=== PATIENT | male | born 2000 | race African-American/Black ===

== ENCOUNTER 2022-03-08 20:10 | Inpatient (IN) ==
[2022-03-08] MEDS ORDERED: ONDANSETRON INJ 2 MG/ML 2 ML VIAL IV STA (20:16)
[2022-03-08 20:54] LABS: Basophils # (auto) 0.01 K/uL (0-0.2); Basophils % (auto) 0.1 %; Eosinophils # (auto) 0.04 K/uL (0-0.50); Eosinophils % (auto) 0.6 %; Hematocrit (blood only) 40.8 % (40.1-51.0); Hemoglobin 13.9 g/dl (14.0-18.0); Immature Granulocytes # (auto) 0.02 K/uL (0.00-0.02); Immature Granulocytes % (auto) 0.3 %; Lymphocytes # (auto) 1.26 K/uL (1.2-3.4); Lymphocytes % (auto) 17.6 %; Mean Corpuscular Hemoglobin 29.4 pg (25.0-34.0); Mean Corpuscular Hgb Conc 34.1 g/dL (32.0-36.0); Mean Corpuscular Volume 86.3 fL (80.0-100.0); Monocytes # (auto) 0.51 K/uL (0.24-0.82); Monocytes % (auto) 7.1 %; Neutrophils % (auto) 74.3 %; Platelet Count 321 K/uL (130-400); RDW Coefficient of Variation 11.4 % (11.5-14.5); RDW Standard Deviation 36.1 fL (36.4-46.3); Red Blood Count 4.73 M/uL (4.63-6.08); White Blood Count 7.14 K/ul (4.8-10.8)
[2022-03-08] MEDS ORDERED: ACETAMINOPHEN 1,000 MG/100 ML VIAL IV STA (21:01)
[2022-03-08] MEDS ORDERED: PROMETHAZINE HCL 12.5 MG in SODIUM CHLORIDE 0.9% 50 ML IV STA (21:01)
[2022-03-08 21:13] LABS: Albumin Globulin Ratio 1.3 (0.9-2); Albumin Level 4.5 gm/dl (3.4-5.0); BUN Creatinine Ratio 7.4 (10-20); Bilirubin,Total 1.1 mg/dl (0.2-1.0); Calcium 9.6 mg/dl (8.5-10.1); Est GFR (African American) 97.9 ml/min; Est GFR (Non-African American) 84.5 ml/min; Globulin 3.6 gm/dl (2.5-4.0); Potassium 4.1 mmol/L (3.5-5.1); Total Protein 8.1 gm/dl (6.0-8.3)
[2022-03-08] MEDS ORDERED: MoRPHine SULFATE 4 MG/ML 1 ML CARP\\VIAL IV STA (22:50)
[2022-03-08] MEDS ORDERED: PROMETHAZINE 12.5 MG/50.5 ML BAG IV STA (22:51)
[2022-03-09] MEDS ORDERED: OPTIRAY 350 100ml IV ONE (00:42)
--- NOTE | 2022-03-09 01:18 | Emergency Department Note ---
Impression & Plan Vomiting and diarrhea, Abdominal pain, lower ED Provider Note CHIEF COMPLAINT: Lower abdominal pain, vomiting, diarrhea HISTORY OF PRESENT ILLNESS: This 21 yo male patient presents to the emergency department with c/o mid lower abd pain radiating towards the right. Patient states he has been vomiting and had several episodes of diarrhea throughout the day today. In October of this year the patient presented to the emergency department with right lower quadrant abdominal pain concerning for appendicitis. CT imaging was somewhat equivocal, the patient was treated with antibiotics and bowel rest, and did not have definitive surgery. He was referred to the emergency department today by the team physician after complaining of abdominal pain. The patient denies any blood in the emesis or in the bowels. He denies any fever, pain of the genitals or discharge. Patient is not having difficulty urinating. REVIEW OF SYSTEMS: A review of systems was performed with positives and pertin ent negatives listed in the history of present illness. 10 systems were reviewed and are otherwise negative. ALLERGIES: see below MEDICATIONS: see below PMH: see below SOCIAL HISTORY: see below DDx: Appendicitis, testicular torsion, infections, diverticulitis, UTI, obstruction, mesenteric ischemia, aortic pathology, inflammatory bowel disease, renal colic, PUD, pancreatitis, biliary pathology, hernia, volvulus, constipation, as well as other pathologies. PHYSICAL EXAM: Vital signs reviewed. General: Well-appearing 21 yo male, in some discomfort. HEENT: No scleral icterus, PERRLA, neck supple. MMM Cardiovascular: Regular rate and rhythm, no extra sounds. Pulmonary: Clear to auscultation bilaterally, normal work of breathing. Abdomen: Soft, mid lower abd tenderness radiating to LLQ, nondistended, positive bowel sounds. Musculoskeletal: Atraumatic, no peripheral edema. Neurologic: Patient awake alert and oriented x 3 Skin: Warm, dry, no rash EMERGENCY DEPARTMENT COURSE/MDM: Patient evaluated appear to be in no significant distress. IV access was obtained and laboratory work was drawn. Patient vomited several times in the emergency department. He was not able to provide a stool sample. He was given Zofran, Phenergan and Dilaudid and but still we were unable to administer oral contrast due to his lack of body fat for CT imaging. Patient did have some CT contrast in the stomach but just prior to CT vomited. Stat rad stated there is a tubular structure in the right lower quadrant that may represent ileum or the appendix, it was unclear. Patient's presentation was a bit more consistent with gastroenteritis although through the stay in the emergency department he did develop a more localized tenderness. Patient had a normal WBC. General surgery was contacted as the patient remains tender to palpation. Patient was hospitalized under Dr. Keith for ob servation and further management. MONITORING: An order for cardiac monitoring was placed and the patient is noted to be in a NSR at 77 beats per minute. RADIOLOGY: See below DISPOSITION: Admit Past Med/Surg History Medical History (Updated 03/09/22 @ 15:05 by Ingrid Rae MD) Acute appendicitis with localized peritonitis No chronic diseases present Surgical History (Updated 03/09/22 @ 15:07 by Sally Segovia RN) History of laparoscopic appendectomy (03/09/22) Laparoscopic Appendectomy(Not Applicable) - Javad Keith, , FACS No significant past surgical history Social History Smoking Status: Current some day smoker Tobacco Type: E-cigarettes / Vaping Second Hand Exposure: No; Hx Alcohol Use: Yes Alcohol type: beer and hard liquor Hx Substance Use: No Preferred Language: Malay Communication Ability: Effective Cadd Drafter Required: No Beliefs That Will Affect Care: None Current Living Situation: Alone Current Living Situation Comment: Apartment Feels Safe at Home: No Is there a partner from a previous relationship who is making you feel unsafe now?: No Assistive Devices: None Allergies Allergies Allergy/AdvReac Type Severity Reaction Status Date / Time No Known Allergies Allergy Verified 03/08/22 23:15 Home Meds Previous Rx's Medication Instructions Recorded oxycodone-acetaminophen 5 mg-325 1 - 2 tab PO Q4H PRN pain, initial 03/09/22 mg tablet (Percocet) therapy, max 6 daily #15 tabs Results & Data (ED) Vital Signs Vital Signs - 24 hr 03/08/22 20:28 03/08/22 21:05 03/08/22 20:14 Temperature 36.7 C Temperature Source Oral Pulse Rate 76 Pulse Rate [Apical] 77 Respiratory Rate 18 18 Respiratory Effort / Characteristics Non-Labored Spontaneous Respiratory Depth Normal Respiratory Pattern Regular Blood Pressure 149/123 H Blood Pressure [Right Arm] 135/62 Blood Pressure Mean 131 Blood Pressure Mean [Right Arm] 86 Pulse Oximetry 96 98 99 Oxygen Delivery Method Room Air Room Air Room Air Sepsis Recent Fever Within 48 Hours No Sepsis New/Unexplained Change in Mental Status N/A Sepsis Action Taken by Nursing No Action Required 03/08/22 23:00 Temperature Temperature Source Pulse Rate Pulse Rate [Apical] 64 Respiratory Rate 16 Respiratory Effort / Characteristics Non-Labored Respiratory Depth Normal Respiratory Pattern Blood Pressure Blood Pressure [Right Arm] 133/72 Blood Pressure Mean Blood Pressure Mean [Right Arm] 92 Pulse Oximetry Oxygen Delivery Method Sepsis Recent Fever Within 48 Hours Sepsis New/Unexplained Change in Mental Status Sepsis Action Taken by Assisted Medications Current Medication List: was personally reviewed by me Laboratory Data Attestation: I reviewed the patient's lab results. Result diagrams: 03/09/22 06:25 03/09/22 06:25 Lab Results 03/08/22 03/08/22 03/08/22 Range/Units 20:37 20:37 21:19 WBC 7.14 (4.8-10.8) K/ul RBC 4.73 (4.63-6.08) M/uL Hgb 13.9 L (14.0-18.0) g/dl Hct 40.8 (40.1-51.0) % MCV 86.3 (80.0-100.0) fL MCH 29.4 (25.0-34.0) pg MCHC 34.1 (32.0-36.0) g/dL RDW Std Deviation 36.1 L (36.4-46.3) fL RDW Coeff of Chicho 11.4 L (11.5-14.5) % Plt Count 321 (130-400) K/uL MPV 10.0 (9.4-12.4) fL Immature Gran % (Auto) 0.3 % Neut % (Auto) 74.3 % Lymph % (Auto) 17.6 % Nye % (Auto) 7.1 % Eos % (Auto) 0.6 % Baso % (Auto) 0.1 % Neut # (Auto) 5.30 (1.4-6.5) K/uL Lymph # (Auto) 1.26 (1.2-3.4) K/uL Nye # (Auto) 0.51 (0.24-0.82) K/uL Eos # (Auto) 0.04 (0-0.50) K/uL Baso # (Auto) 0.01 (0-0.2) K/uL Immature Gran # (Auto) 0.02 (0.00-0.02) K/uL Sodium 135 L (136-145) mmol/L Potassium 4.1 (3.5-5.1) mmol/L Chloride 100 (98-107) mmol/L Carbon Dioxide 29 (21-32) mmol/L Anion Gap 6 (3-11) BUN 9 (6-23) mg/dl Creatinine 1.21 (0.6-1.4) mg/dl Est Cr Clr Drug Dosing 112.0 ml/min Est GFR ( Amer) 97.9 ml/min Est GFR (Non-Af Amer) 84.5 ml/min BUN/Creatinine Ratio 7.4 L (10-20) Glucose 102 H (70-99(Fasting)) mg/dl Calcium 9.6 (8.5-10.1) mg/dl Total Bilirubin 1.1 H (0.2-1.0) mg/dl AST 26 (13-39) U/L ALT 13 (7-52) U/L Alkaline Phosphatase 81 (34-104) U/L Total Protein 8.1 (6.0-8.3) gm/dl Albumin 4.5 (3.4-5.0) gm/dl Globulin 3.6 (2.5-4.0) gm/dl Albumin/Globulin Ratio 1.3 (0.9-2) Lipase 10 L (11-82) U/L SARS-CoV-2, RNA, NAAT NEGATIVE (NEGATIVE) Administered Medications Lactated Ringer's (Lr) 1,000 mls @ 125 mls/hr IV .Q8H RADHA Stop: 04/08/22 01:44 Last Infusion: 03/09/22 10:07 Dose: 0 mls/hr Documented By: Admin: 03/09/22 02:05 Dose: 125 mls/hr Documented By: LARA Piperacillin Sod/Tazobactam (Sod 3.375 gm/ Dextrose) 115 mls @ 200 mls/hr IV Q8H RADHA; Protocol Stop: 03/10/22 15:59 Last Infusion: 03/09/22 16:34 Dose: 0 mls/hr Documented By: Admin: 03/09/22 15:56 Dose: 200 mls/hr Documented By: YE Morphine Sulfate (Morphine Sulfate 4 Mg/Ml 1 Ml Carp\Vial) 4 mg IV Q2H PRN PRN Reason: Pain Stop: 03/23/22 14:11 Last Admin: 03/09/22 14:23 Dose: 4 mg Documented By: YE Ondansetron HCl (Ondansetron Inj 2 Mg/Ml 2 Ml Vial) 4 mg IV Q6H PRN PRN Reason: Nausea And Vomiting Stop: 04/08/22 01:43 Last Admin: 03/09/22 02:05 Dose: 4 mg Documented By: LARA Discontinued Medications Bupivacaine HCl (Bupivacaine 0.5 % 5 Mg/1 Ml Mpf 30ml Vial) Confirm Administered Dose 30 ml .ROUTE .STK-MED ONE Stop: 03/09/22 10:51 Last Admin: 03/09/22 11:49 Dose: 24 ml Documented By: YANELIS Fentanyl Citrate (Fentanyl Citrate 100 Mcg/2 Ml Vial) 50 mcg IV Q5M PRN PRN Reason: PACU Use Only-Pain Stop: 03/09/22 19:35 Last Admin: 03/09/22 12:47 Dose: 50 mcg Documented By: Acetaminophen (Ofirmev) 1,000 mg in 100 mls @ 400 mls/hr IV NOW STA Stop: 03/08/22 21:15 Last Infusion: 03/08/22 21:30 Dose: 0 mls/hr Documented By: Admin: 03/08/22 21:16 Dose: 400 mls/hr Documented By: KEKE Promethazine HCl 12.5 mg/ (Sodium Chloride) 50.5 mls @ 202 mls/hr IV NOW STA Stop: 03/08/22 21:15 Last Infusion: 03/08/22 22:03 Dose: 0 mls/hr Documented By: Admin: 03/08/22 21:30 Dose: 202 mls/hr Documented By: KEKE Promethazine HCl (Phenergan) 12.5 mg in 50.5 mls @ 202 mls/hr IV NOW STA Stop: 03/08/22 23:05 Last Infusion: 03/08/22 23:40 Dose: 0 mls/hr Documented By: Admin: 03/08/22 22:58 Dose: 202 mls/hr Documented By: SLOAN Piperacillin Sod/Tazobactam Sod (Zosyn) 4.5 gm in 120 mls @ 240 mls/hr IV NOW ONE Stop: 03/09/22 02:17 Last Infusion: 03/09/22 03:24 Dose: 0 mls/hr Documented By: Admin: 03/09/22 02:05 Dose: 240 mls/hr Documented By: LARA Piperacillin Sod/Tazobactam (Sod 4.5 gm/ Dextrose) 120 mls @ 30 mls/hr IV Q8H RADHA; Protocol Stop: 03/19/22 03:03 Last Infusion: 03/09/22 12:08 Dose: 0 mls/hr Documented By: Admin: 03/09/22 08:08 Dose: 30 mls/hr Documented By: YE Ioversol (Optiray 350 100ml) 100 ml IV ONCE ONE Stop: 03/09/22 00:43 Last Admin: 03/09/22 07:09 Dose: Not Given Documented By: YE Morphine Sulfate (Morphine Sulfate 4 Mg/Ml 1 Ml Carp\Vial) 4 mg IV NOW STA Stop: 03/08/22 22:51 Last Admin: 03/08/22 22:58 Dose: 4 mg Documented By: SLOAN Morphine Sulfate (Morphine Sulfate 2 Mg/Ml Carp) 2 mg IV Q4H PRN PRN Reason: Pain Stop: 03/23/22 01:43 Last Admin: 03/09/22 02:05 Dose: 2 mg Documented By: LARA Ondansetron HCl (Ondansetron Inj 2 Mg/Ml 2 Ml Vial) 4 mg IV NOW STA Stop: 03/08/22 20:17 Last Admin: 03/08/22 20:36 Dose: 4 mg Documented By: LARA Imaging Data Radiologist's Impression: Abdomen/Pelvis CT 03/08/22 20:14 CT OF THE ABDOMEN AND PELVIS WITH CONTRAST CLINICAL HISTORY: Right lower quadrant abdominal pain, h/o equivocal appy in past COMPARISON STUDY: CT of the abdomen pelvis November 12, 2021. TECHNIQUE: Following IV administration of 88 mL of Optiray, axial images of the abdomen and pelvis were obtained from the lung bases to the proximal femurs. Images were reviewed in the axial, sagittal, and coronal planes. IV contrast was administered without complication. Automated exposure control was utilized for the study. A dose lowering technique was utilized adhering to the principles of ALARA. Patient vomited following ingestion of oral contrast. CT DOSE: 335.52 mGy.cm FINDINGS: Lung bases are unremarkable. No pneumatosis, free air or portal venous gas is present. Liver, spleen, adrenal glands, kidneys and pancreas are unremarkable. There is no biliary or pancreatic ductal dilatation. There is no hydronephrosis. There is no evidence for a bowel obstruction. This exam is technically difficult to interpret given paucity of intra-abdominal fat and minimal oral contrast. However, there is a tubular structure which appears to be blind ending within the right lower quadrant which may reflect the appendix. T his measures 1.1 cm in caliber. There is no adjacent inflammation. A dilated appendix is favored. Less likely, this could reflect a small bowel loop. No normal-appearing appendix is identified. There is no free air. No abscess is present. Major vasculature is patent. Visualized skeletal structures are unremarkable. IMPRESSION: Tubular structure which appears to be blind ending within the right lower quadrant, measuring 11 mm in caliber. No normal-appearing appendix romie ntified. This is suggestive of acute appendicitis. Less likely, this could reflect a bowel loop. Surgical consultation is recommended. ACT 112: Negative or not required by law. Electronically signed by: Reynold Morel M.D. 03/09/2022 8:12 AM Blood Pressure Blood Pressure Findings: Normal blood pressure Blood Pressure Disposition: Referred to patients primary care provider Discharge Plan Visit Data Chief Complaint: Abdominal Pain Stated Complaint: APPENDIX PAIN,VOMIT, CHILLS ED Provider: Ingrid Rae Discharge Problem: Vomiting and diarrhea, Abdominal pain, lower Patient Disposition: Admitted As Inpatient Discharge Instructions Interventions: ED Discharge Assessment Last Done: 03/09/22 02:20
--- NOTE | 2022-03-09 01:43 | History & Physical Report ---
Date of Service March 09, 2022 Assessment & Plan (1) Abdominal pain: Plan: It is unclear if the patient is suffering merely from a gastroenteritis or acute appendicitis. I discussed the case with my attending physician Dr. Keith. After reviewing the CT scan he is favoring acute appendicitis at this time. We will therefore proceed as follows: Provide analgesics Provide antiemetics We will initiate antibiotics in the form of Zosyn We will provide IV fluid for hydration We will keep the patient n.p.o. We will tentatively schedule the patient for an appendectomy with Dr. Keith. Dr. Keith says he will review the CT scan with our in-house radiologist and also reexamined the patient in the morning at which time he will make a definitive decision whether or not patient will require an appendectomy I have discussed the case with patient's mother Soledad via phone at the patient's request. Her number is [phone] We will use SCDs for DVT prevention, no chemical means due to potential need for surgery Additional recommendations be forthcoming based on his clinical course as it unfolds The patient be a level 1 full code History of Present Illness Chief Complaint: Abdominal pain Primary Care Provider: [facility] This is a 21-year-old male who presented to [facility] secondary to 24 hours of abdominal pain. Patient notes that the pain in his lower abdomen near his umbilicus and also the right lower quadrant. He has had associated nausea and vomiting. He denies any fevers, shakes, or chills. He notes that the pain is worse with certain movements. He does not note any other modifying factors. He has never had any abdominal surgeries in the past. In the emergency department the patient had labs and imaging which independent reviewed. CT scan of the abdomen pelvis was performed with intravenous and oral contrast. Unfortunately the patient vomited shortly after consuming some of the oral contrast. On this scan the appendix was not well visualized but there was an 11 mm structure in the right lower quadrant that was felt either reflect a dilated appendix or loop of ileum. The patient did have labs were CBC revealed white blood cell count was normal. His hemoglobin was 13.9 with a normal hematocrit. Platelet count was noted to be normal. Chemistry profile showed sodium was 135. Potassium, BUN, and creatinine were normal. Patient did have a COVID test that was negative. It is noteworthy to mention that the patient did present to [facility] in [place] of this year with similar symptoms. During that visit CT scan of the abdomen showed that the tip of the appendix was mildly distended and filled with hyperdense material measuring up to 8 mm. There is no definite wall thickening or surrounding inflammation and clinical suspicion was low for tip appendicitis. The patient was discharged home and has been doing well since. The treating emergency room physician did speak with the interpreting radiologist and when he compared the 2 scans there was concern the patient did have an acute appendicitis. Allergies Allergy/AdvReac Type Severity Reaction Status Date / Time No Known Allergies Allergy Verified 03/08/22 23:15 Home Medications Medication Instructions Recorded Confirmed Type No Known Home Medications 03/08/22 03/08/22 History Past Med/Surg History Medical History No chronic diseases present Surgical History No significant past surgical history Social History Smoking Status: Current some day smoker Tobacco Type: E-cigarettes / Vaping Preferred Language: Macanese Feels Safe at Home: Yes Review of Systems Constitutional: no fever and no chills Eyes: no eye pain Ear, Nose, Mouth, Throat: no ear pain Respiratory: no cough and no dyspnea Cardiovascular: no chest pain Gastrointestinal: + abdominal pain, + nausea and + vomiting Genitourinary: no dysuria Musculoskeletal: no back pain Integumentary: no rash Neurologic: no localized weakness Physical Exam Constitutional: well developed and well nourished; no acute distress Eyes: no conjunctival abnormality ENMT: Ears: no hearing impairment and no external ear abnormality Mouth: no oropharynx abnormality Neck: trachea midline Respiratory: normal respiratory effort; no respiratory distress and no labored breathing Cardiovascular: Rate/Rhythm: regular rate and regular rhythm Gastrointestinal (Abdomen): Abdomen is soft and nondistended. It is nonrigid. The patient did have pain with palpation in the lower abdomen in a generalized fashion but did have pain over McBurney's point with palpation. He did have some slight rebound. Musculoskeletal: No calf tenderness Skin: no rashes Neurologic: moves all extremities Psychiatric: A+Ox3, euthymic affect Results & Data Results & Data (MN) Vital Signs (Past 12 Hours) Vital Signs Temp Pulse Pulse Resp BP BP Pulse Ox 03/08/22 20:14 99 03/08/22 21:05 77 18 135/62 98 03/08/22 20:28 36.7 C 76 18 149/123 H 96 O2 Del Method 03/08/22 20:14 Room Air 03/08/22 21:05 Room Air 03/08/22 20:28 Room Air PG Care Time/CCT Total # of Minutes Spent Total Time Spent with Patient: Total time spent is greater than 50% in coordination of care (as documented) at patient's floor/unit and/or counseling patient: Coding Level of Care Code 23481 Initial Inpt Care Lvl 3 Diagnoses Abdominal pain R10.9
[2022-03-09] MEDS ORDERED: ONDANSETRON INJ 2 MG/ML 2 ML VIAL IV PRN ×2 (01:44→11:35)
[2022-03-09] MEDS ORDERED: MoRPHine SULFATE 2 MG/ML CARP IV PRN ×2 (01:44→14:12)
[2022-03-09] MEDS ORDERED: PIPERACILLIN/TAZOBACTAM 4.5 GM/120 ML BAG IV ONE (01:48)
[2022-03-09] MEDS: LACTATED RINGER'S 1,000 ML IV SCH ×2 (02:05→14:00)
[2022-03-09 05:25] LABS: Appearance Urine Clear (Clear); Bacteria Urine Automated Negative (Negative); Bilirubin Urine Negative (Negative); Blood Urine Negative (Negative); Color Urine Yellow; Glucose Urine UA Negative (Negative); Ketones Urine 1+ (Negative); Leukocyte Esterase Urine Negative (Negative); Nitrite Urine Negative (Negative); RBC Urine Automated 0-4 /hpf (0-4); Specific Gravity Urine > 1.045 (1.000-1.030); Urobilinogen Urine Negative (Negative); pH Urine 7.5 (4.5-7.5)
[2022-03-09 05:31] LABS: Protein Urine Trace (Negative)
[2022-03-09 06:44] LABS: Basophils # (auto) 0.02 K/uL (0-0.2); Basophils % (auto) 0.2 %; Hematocrit (blood only) 40.6 % (40.1-51.0); Hemoglobin 13.9 g/dl (14.0-18.0); Immature Granulocytes # (auto) 0.03 K/uL (0.00-0.02); Immature Granulocytes % (auto) 0.2 %; Lymphocytes # (auto) 0.94 K/uL (1.2-3.4); Lymphocytes % (auto) 7.7 %; Mean Corpuscular Hemoglobin 29.2 pg (25.0-34.0); Mean Corpuscular Hgb Conc 34.2 g/dL (32.0-36.0); Mean Corpuscular Volume 85.3 fL (80.0-100.0); Mean Platelet Volume 9.9 fL (9.4-12.4); Monocytes # (auto) 0.95 K/uL (0.24-0.82); Monocytes % (auto) 7.8 %; Neutrophils # (auto) 10.31 K/uL (1.4-6.5); Neutrophils % (auto) 84.1 %; Platelet Count 287 K/uL (130-400); RDW Coefficient of Variation 11.2 % (11.5-14.5); RDW Standard Deviation 34.8 fL (36.4-46.3); Red Blood Count 4.76 M/uL (4.63-6.08); White Blood Count 12.25 K/ul (4.8-10.8)
[2022-03-09 07:09] LABS: BUN Creatinine Ratio 9.5 (10-20); Calcium 9.1 mg/dl (8.5-10.1); Creatinine Clr Calc Pharmacy 131.9 ml/min; Est GFR (African American) 116.2 ml/min; Est GFR (Non-African American) 100.3 ml/min; Potassium 4.1 mmol/L (3.5-5.1)
[2022-03-09] MEDS ORDERED: PIPERACILLIN/TAZOBACTAM 4.5 GM in DEXTROSE 5% 100 ML IV SCH (08:00)
--- NOTE | 2022-03-09 08:14 | CT Scan Report ---
CT OF THE ABDOMEN AND PELVIS WITH CONTRAST CLINICAL HISTORY: Right lower quadrant abdominal pain, h/o equivocal appy in past COMPARISON STUDY: CT of the abdomen pelvis November 12, 2021. TECHNIQUE: Following IV administration of 88 mL of Optiray, axial images of the abdomen and pelvis we re obtained from the lung bases to the proximal femurs. Images were reviewed in the axial, sagittal, and coronal planes. IV contrast was administered without complication. Automated exposure control wa s utilized for the study. A dose lowering technique was utilized adhering to the principles of ALARA . Patient vomited following ingestion of oral contrast. CT DOSE: 335.52 mGy.cm FINDINGS: Lung bases are unremarkable. No pneumatosis, free air or portal venous gas is present. Live r, spleen, adrenal glands, kidneys and pancreas are unremarkable. There is no biliary or pancreatic d uctal dilatation. There is no hydronephrosis. There is no evidence for a bowel obstruction. This exam is technically difficult to interpret given paucity of intra-abdominal fat and minimal oral contrast . However, there is a tubular structure which appears to be blind ending within the right lower quadr ant which may reflect the appendix. This measures 1.1 cm in caliber. There is no adjacent inflammatio n. A dilated appendix is favored. Less likely, this could reflect a small bowel loop. No normal-appea ring appendix is identified. There is no free air. No abscess is present. Major vasculature is patent . Visualized skeletal structures are unremarkable. IMPRESSION: Tubular structure which appears to be blind ending within the right lower quadrant, cristina uring 11 mm in caliber. No normal-appearing appendix identified. This is suggestive of acute appendic itis. Less likely, this could reflect a bowel loop. Surgical consultation is recommended. ACT 112: Negative or not required by law. Electronically signed by: Reynold Morel M.D. 03/09/2022 8:12 AM
[2022-03-09] MEDS ORDERED: ONDANSETRON INJ 2 MG/ML 2 ML VIAL ONE ×2 (10:07→11:43)
[2022-03-09] MEDS ORDERED: GLYCOPYRROLATE 0.2 MG/ML VIAL ONE ×2 (10:07→11:45)
[2022-03-09] MEDS ORDERED: PROPOFOL IV EMULSION 10 MG/ML 20 ML VIAL IV ONE (10:07)
[2022-03-09] MEDS ORDERED: NEOSTIGMINE METHYLSULFATE 1 MG/ML 10ML VIAL ONE (10:07)
[2022-03-09] MEDS ORDERED: MIDAZOLAM HCL 1 MG/ML 2ML VIAL ONE (10:07)
[2022-03-09] MEDS ORDERED: DEXAMETHASONE SOD INJ 4 MG/ML VIAL ONE (10:07)
[2022-03-09] MEDS ORDERED: fentaNYL citrate 100 MCG/2 ML VIAL ONE (10:07)
--- NOTE | 2022-03-09 10:29 | Surgery Progress Note ---
Date of Service March 09, 2022 Assessment & Plan (1) Acute appendicitis with localized peritonitis: Plan: 21year old male with appendicitis. plan for laparoscopic appendectomy risks discussed to include but not limited to bleeding, infection, normal appendix, abscess, open surgery, damage to surrounding structures including bile duct, need for future or more extensive surgery, failure to treat symptoms, and risks of anesthesia. Wound care instructions and activity restrictions reviewed. Specifically no heavy lifting or strenuous activity for 2 to 3 weeks. He may need to wait longer to return to full contact. Admission and Anticipated Discharge Date Admission Date: March 09, 2022 Subjective 21-year-old male presented overnight with signs symptoms of acute appendicitis. Pain woke him from sleep yesterday morning at 2 AM and was periumbilical. He had nausea and vomiting with some loose stools. The pain eventually migrated to his right lower quadrant. He had similar episode in October and was treated nonoperatively with antibiotics given the fact that he had positive COVID test and an equivocal CT. Otherwise healthy, not on any blood thinners. Physical Exam Constitutional: WD/WN, vitals as above Respiratory: normal respiratory effort, lungs clear to auscultation Cardiovascular: RRR, no murmur, no edema Gastrointestinal (Abdomen): Percussion/Palpation: + abdomen tender (Right lower quadrant tenderness to palpation with localized guarding), + guarding and abdomen soft; abdomen not rigid and no hepatosplenomegaly Results & Data ([facility]) Vital Signs (Past 12 Hours) Vital Signs Temp Pulse Pulse Resp BP BP Pulse Ox 03/09/22 10:00 37.2 C 65 18 138/71 97 03/09/22 07:59 36.4 C L 66 16 124/65 98 03/09/22 03:08 37.1 C 58 L 14 137/75 97 03/09/22 03:07 37.1 C 58 L 14 137/75 97 03/08/22 23:00 64 16 133/72 03/09/22 02:06 62 20 136/84 94 O2 Del Method 03/09/22 10:00 Room Air 03/09/22 07:59 Room Air 03/09/22 03:08 Room Air 03/09/22 03:07 Room Air 03/08/22 23:00 03/09/22 02:06 Room Air Laboratory Results Laboratory Results - last 24 hr 03/08/22 03/08/22 03/08/22 20:37 20:37 21:19 WBC 7.14 RBC 4.73 Hgb 13.9 L Hct 40.8 MCV 86.3 MCH 29.4 MCHC 34.1 RDW Std Deviation 36.1 L RDW Coeff of [place] 11.4 L Plt Count 321 MPV 10.0 Immature Gran % (Auto) 0.3 Neut % (Auto) 74.3 Lymph % (Auto) 17.6 [place] % (Auto) 7.1 Eos % (Auto) 0.6 Baso % (Auto) 0.1 Neut # (Auto) 5.30 Lymph # (Auto) 1.26 [place] # (Auto) 0.51 Eos # (Auto) 0.04 Baso # (Auto) 0.01 Immature Gran # (Auto) 0.02 Sodium 135 L Potassium 4.1 Chloride 100 Carbon Dioxide 29 Anion Gap 6 BUN 9 Creatinine 1.21 Est Cr Clr Drug Dosing 112.0 Est GFR ( Amer) 97.9 Est GFR (Non-Af Amer) 84.5 BUN/Creatinine Ratio 7.4 L Glucose 102 H Calcium 9.6 Total Bilirubin 1.1 H AST 26 ALT 13 Alkaline Phosphatase 81 Total Protein 8.1 Albumin 4.5 Globulin 3.6 Albumin/Globulin Ratio 1.3 Lipase 10 L Urine Color Urine Appearance Urine pH Ur Specific [place] Urine Protein Urine Glucose (UA) Urine Ketones Urine Blood Urine Nitrite Urine Bilirubin Urine Urobilinogen Ur Leukocyte Esterase Urine WBC (Auto) Urine RBC (Auto) U Hyaline Cast (Auto) U Epithel Cells (Auto) Urine Bacteria (Auto) SARS-CoV-2, RNA, NAAT NEGATIVE 03/09/22 03/09/22 03/09/22 05:10 06:25 06:25 WBC 12.25 H RBC 4.76 Hgb 13.9 L Hct 40.6 MCV 85.3 MCH 29.2 MCHC 34.2 RDW Std Deviation 34.8 L RDW Coeff of [place] 11.2 L Plt Count 287 MPV 9.9 Immature Gran % (Auto) 0.2 Neut % (Auto) 84.1 Lymph % (Auto) 7.7 [place] % (Auto) 7.8 Eos % (Auto) 0.0 Baso % (Auto) 0.2 Neut # (Auto) 10.31 H Lymph # (Auto) 0.94 L [place] # (Auto) 0.95 H Eos # (Auto) 0.00 Baso # (Auto) 0.02 Immature Gran # (Auto) 0.03 H Sodium 135 L Potassium 4.1 Chloride 100 Carbon Dioxide 28 Anion Gap 7 BUN 10 Creatinine 1.05 Est Cr Clr Drug Dosing 131.9 Est GFR ( Amer) 116.2 Est GFR (Non-Af Amer) 100.3 BUN/Creatinine Ratio 9.5 L Glucose 110 H Calcium 9.1 Total Bilirubin AST ALT Alkaline Phosphatase Total Protein Albumin Globulin Albumin/Globulin Ratio Lipase Urine Color Yellow Urine Appearance Clear Urine pH 7.5 Ur Specific [place] > 1.045 H Urine Protein Trace H Urine Glucose (UA) Negative Urine Ketones 1+ H Urine Blood Negative Urine Nitrite Negative Urine Bilirubin Negative Urine Urobilinogen Negative Ur Leukocyte Esterase Negative Urine WBC (Auto) 1-5 Urine RBC (Auto) 0-4 U Hyaline Cast (Auto) 1-5 U Epithel Cells (Auto) 10-20 H Urine Bacteria (Auto) Negative SARS-CoV-2, RNA, NAAT Diagnostic Findings I personally reviewed and interpreted the CT scan myself and discussed it over the phone with Dr. Morel from radiology. We agree that there is a blind ended tubular structure in the right lower quadrant dilated to approximately 1 cm that appears to be consistent with acute appendicitis. CT OF THE ABDOMEN AND PELVIS WITH CONTRAST CLINICAL HISTORY: Right lower quadrant abdominal pain, h/o equivocal appy in past COMPARISON STUDY: CT of the abdomen pelvis November 12, 2021. TECHNIQUE: Following IV administration of 88 mL of Optiray, axial images of the abdomen and pelvis were obtained from the lung bases to the proximal femurs. Images were reviewed in the axial, sagittal, and coronal planes. IV contrast was administered without complication. Automated exposure control was utilized for the study. A dose lowering technique was utilized adhering to the principles of ALARA. Patient vomited following ingestion of oral contrast. CT DOSE: 335.52 mGy.cm FINDINGS: Lung bases are unremarkable. No pneumatosis, free air or portal venous gas is present. Liver, spleen, adrenal glands, kidneys and pancreas are unremarkable. There is no biliary or pancreatic ductal dilatation. There is no hydronephrosis. There is no evidence for a bowel obstruction. This exam is technically difficult to interpret given paucity of intra-abdominal fat and minimal oral contrast. However, there is a tubular structure which appears to be blind ending within the right lower quadrant which may reflect the appendix. This measures 1.1 cm in caliber. There is no adjacent inflammation. A dilated ap pendix is favored. Less likely, this could reflect a small bowel loop. No normal-appearing appendix is identified. There is no free air. No abscess is present. Major vasculature is patent. Visualized skeletal structures are unremarkable. IMPRESSION: Tubular structure which appears to be blind ending within the right lower quadrant, measuring 11 mm in caliber. No normal-appearing appendix identif ied. This is suggestive of acute appendicitis. Less likely, this could reflect a bowel loop. Surgical consultation is recommended. PG Care Time/CCT Total # of Minutes Spent Total Time Spent with Patient: Total time spent is greater than 50% in coordination of care (as documented) at patient's floor/unit and/or counseling patient: Coding Level of Care Code 53118 Subseq Hosp Care Lvl 1 Diagnoses Acute appendicitis with localized peritonitis K35.30
[2022-03-09] MEDS ORDERED: BUPIVACAINE 0.5 % 5 MG/1 ML MPF 30ML VIAL ONE (10:50)
--- NOTE | 2022-03-09 10:56 | Anesthesiology Consultation ---
Date of Service March 09, 2022 Assessment & Plan Chart Review Chart Review: Acceptable Risk for Surgery and Patient NOT seen in Pre Admission Testing Consults Requested none ASA ASA2 Proposed Anesthesia Anesthesia Type: General Risk / Benefits Reviewed With: PT / POA / Parent / Guardian, Accepts Plan and Informed Consent Obtained History Surgery Operation Date: 03/09/22 15:00 Proposed Procedures p Laparoscopic Appendectomy Possible Open - Javad Keith DO, ROBI Height/Weight Height: 6 ft 3 in Weight: 87.6 kg Allergies Allergy/AdvReac Type Severity Reaction Status Date / Time No Known Allergies Allergy Verified 03/08/22 23:15 Medications Home Medications Medication Instructions Recorded Confirmed Last Taken No Known Home Medications 03/08/22 03/08/22 Unknown Active Medications Generic Name Dose Route Start Last Admin Trade Name Freq PRN Reason Stop Dose Admin Lactated Ringer's 1,000 mls @ 125 mls/hr 03/09/22 01:45 03/09/22 10:07 Lr IV 04/08/22 01:44 Infused .Q8H RADHA Infusion Piperacillin Sod/Tazobactam 120 mls @ 30 mls/hr 03/09/22 08:00 03/09/22 08:08 Sod 4.5 gm/ Dextrose IV 03/19/22 03:03 30 mls/hr Q8H RADHA Administration Protocol Morphine Sulfate 2 mg 03/09/22 01:44 03/09/22 02:05 Morphine Sulfate 2 Mg/Ml Carp IV 03/23/22 01:43 2 mg Q4H PRN Administration Pain Ondansetron HCl 4 mg 03/09/22 01:44 03/09/22 02:05 Ondansetron Inj 2 Mg/Ml 2 Ml Vial IV 04/08/22 01:43 4 mg Q6H PRN Administration Nausea And Vomiting NPO Date Last Intake of Fluids: 03/09/22 Time Last Intake of Fluids: 00:00 Date Last Intake of Solids: 03/08/22 Time Last Intake of Solids: 19:30 Past Medical History Medical History (Updated 03/09/22 @ 10:26 by Javad Keith DO, ROBI) Acute appendicitis with localized peritonitis No chronic diseases present Exercise / Class Metabolic Activity II 4-5 Yardwork/Stairs/Walk up hill Past Surgical History Surgical History No significant past surgical history Past Anesthesia History No Hx of Anesthesia Complications and No Family Hx of Anesthesia Complications History of PONV No Hx of PONV and No Hx of Motion Sickness Social History Smoking Status: Current some day smoker tobacco type: e-cigarettes Do You Dip or Chew Tobacco: No Hx Alcohol Use: Yes Alcohol type: beer and hard liquor alcohol intake frequency: holidays/special occasions only Hx Substance Use: No Physical Exam Vital Signs Last Vital Signs Temp 37.2 C 03/09/22 10:00 Pulse 65 03/09/22 10:00 Resp 18 03/09/22 10:00 BP 138/71 03/09/22 10:00 Pulse Ox 97 03/09/22 10:00 O2 Del Method 03/09/22 10:00 ENMT Mouth: no dentition abnormality Thyromental Distance: > or= 3.5 Finger Breadths Mallampati Class: II Neck normal visual inspection Respiratory normal respiratory effort Auscultation: lungs clear to auscultation bilaterally Cardiovascular Rate/Rhythm: regular rate and regular rhythm Psychiatric Orientation: alert Testing Laboratory Results 03/09/22 06:25 03/09/22 06:25 Urine Color Yellow 03/09/22 05:10 Urine Appearance Clear (Clear) 03/09/22 05:10 Urine pH 7.5 (4.5-7.5) 03/09/22 05:10 Ur Specific [place] > 1.045 (1.000-1.030) H 03/09/22 05:10 Urine Protein Trace (Negative) H 03/09/22 05:10 Urine Glucose (UA) Negative (Negative) 03/09/22 05:10 Urine Ketones 1+ (Negative) H 03/09/22 05:10 Urine Nitrite Negative (Negative) 03/09/22 05:10 Ur Leukocyte Esterase Negative (Negative) 03/09/22 05:10 Urine WBC (Auto) 1-5 /hpf (0-5) 03/09/22 05:10 Urine RBC (Auto) 0-4 /hpf (0-4) 03/09/22 05:10 U Hyaline Cast (Auto) 1-5 /lpf (0-5) 03/09/22 05:10 U Epithel Cells (Auto) 10-20 /lpf (0-5) H 03/09/22 05:10 Urine Bacteria (Auto) Negative (Negative) 03/09/22 05:10
[2022-03-09] MEDS ORDERED: fentaNYL citrate 100 MCG/2 ML VIAL IV PRN (11:35)
[2022-03-09] MEDS ORDERED: ePHEDrine sulfate 50 MG/ML AMP IV PRN (11:35)
[2022-03-09] MEDS ORDERED: ATROPINE SULFATE 0.1 MG/ML 10ML SYR IV PRN (11:35)
[2022-03-09] MEDS ORDERED: ACETAMINOPHEN 1000 MG/100 ML IV IV ONE (11:42)
[2022-03-09] MEDS ORDERED: ROCURONIUM BROMIDE 10 MG/ML 5 ML VIAL IV ONE (11:43)
[2022-03-09] MEDS ORDERED: LARYING-O-JET KIT (LTA) ONE (11:43)
[2022-03-09] MEDS ORDERED: LIDOCAINE 2% MPF LOCAL 5 ML VIAL INFIL ONE (11:43)
[2022-03-09] MEDS ORDERED: KETOROLAC 30 MG/ML VIAL ONE (11:49)
--- NOTE | 2022-03-09 11:57 | Operative Report ---
PG Post Operative Report Pre & Post Diagnosis Operation Date: 03/09/22 15:00 Pre-Op Diagnosis: Acute appendicitis Post-Op Diagnosis: Acute appendicitis I identified the patient and participated in the time-out.: Yes Procedure Operation Date: 03/09/22 15:00 Actual Procedures p Laparoscopic Appendectomy(Not Applicable) - Javad Keith DO, FACS Surgeon Javad Keith DO, FACS V Groove Cutter Harjit Ward Estimated Blood Loss 5 Findings Consistent with Post-Op Diagnosis Acute, suppurative, nonperforated appendicitis. Specimens Appendix Anesthesia Type General Complications none Disposition Accompanied Patient To Recovery: No Disposition: Recovery Room Indications 21-year-old male presented with signs and symptoms suspicious for acute appendicitis. He had similar symptoms back in October and was treated nonoperatively with antibiotics. CT scan showed likely appendicitis. Plan for laparoscopic appendectomy. The risks of the procedure were discussed, all questions were answered, and the patient agreed to proceed with surgery as planned. Description of Procedure The patient was properly identified, consented, and taken to the operating room where he was placed in the supine position. General endotracheal anesthesia was induced. SCDs and a safety belt were placed. Preoperative antibiotics were administered. A Jensen catheter was not placed. The patient's abdomen was prepped and draped in the standard sterile fashion. Surgical timeout was performed and all parties were in agreement that this was the correct patient and procedure to be performed and we continued as planned. A curvilinear infraumbilical incision was made with electrocautery and deepened down to the fascia with blunt dissection. The base of the umbilicus was grasped with a Shaq and elevated towards the ceiling. An incision was made in the midline fascia with a knife and entry into the peritoneum was confirmed. Stay suture of 0 Vicryl was placed and a Madden trocar was inserted. The abdomen was insufflated with carbon dioxide which the patient tolerated without incident. The laparoscope was inserted and no damage from initial trocar placement was noted, no gross abnormalities were noted within the 4 quadrants the abdomen. 5 mm ports were then placed in the left lower quadrant with care not to damage the epigastric vessels, and in the suprapubic midline with care not to damage the bladder. The patient was placed in Trendelenburg position and rotated towards the left. The appendix was visualized and lightly adherent to the anterior abdominal wall. There was some omentum adhesed to it which was swept away. The small bowel was swept away from the right lower quadrant. The cecum was grasped with an atraumatic grasper exposing the appendix. The appendix was moderately inflamed with suppurative exudate but there was no evidence of perforation. There was minimal reactive fluid in the pelvis. A window was created between the base of the appendix and the mesoappendix. A simmons loaded endoscopic stapler was then used to divide the appendix at its base. The Sonicision was then used to divide the mesoappendix. Hemostasis was good. The appendix was placed in an Endo Catch bag and removed through the umbilical port site. The right lower quadrant and pelvis was irrigated and hemostasis was found to be good. 5 mm trochars were removed under direct visualization and the abdomen was allowed to collapse. The umbilical port site fascia was closed with 0 Vicryl suture, along with a simple #0 PDS suture. The wound was irrigated, and the skin of all ports was closed with 4-0 Monocryl subcuticular sutures. Dermabond was placed over the wounds. The patient was extubated in the operating room and taken to the PACU where he recovered without apparent incident. All sponge, instrument and needle counts were correct at the conclusion of the procedure. The patient tolerated the procedure well. The physician's technical staff assistant was present and scrubbed for the entire the case. He was critical in positioning the patient, prepping and draping, retraction and exposure, driving the laparoscope, removal of the appendix, closure of the incisions, and placement of the dressings. I attest to the content of the Intraoperative Record and any orders documented therein. Any exceptions are noted below.
[2022-03-09] MEDS ORDERED: KETOROLAC 30 MG/ML VIAL IV PRN (14:12)
[2022-03-09] MEDS ORDERED: MoRPHine SULFATE 4 MG/ML 1 ML CARP\\VIAL IV PRN (14:12)
[2022-03-09] MEDS ORDERED: oxyCODONE/ACETAMINOPHEN 5mg/325mg TAB PO PRN ×2 (14:12)
--- NOTE | 2022-03-09 14:29 | Anesthesiology Progress Note ---
Date of Service March 09, 2022 Anesthesia Post Procedure Vital Signs Vital Signs: Temp Pulse Pulse Pulse Resp BP BP 03/09/22 14:00 37.6 C H 74 18 03/09/22 13:45 67 17 03/09/22 13:30 60 16 03/09/22 13:20 58 L 15 03/09/22 13:10 36.9 C 62 15 03/09/22 12:50 54 L 14 03/09/22 13:00 61 16 03/09/22 12:40 56 L 17 03/09/22 12:30 59 L 22 03/09/22 12:20 71 22 03/09/22 12:13 36.5 C 75 20 03/09/22 10:00 37.2 C 65 18 03/09/22 07:59 36.4 C L 66 16 124/65 03/09/22 03:08 37.1 C 58 L 14 03/09/22 03:07 37.1 C 58 L 14 03/08/22 23:00 64 16 03/09/22 02:06 62 20 03/08/22 20:14 03/08/22 21:05 77 18 03/08/22 20:28 36.7 C 76 18 149/123 H BP Pulse Ox O2 Del Method O2 Flow Rate 03/09/22 14:00 132/64 97 Room Air 03/09/22 13:45 134/61 96 Room Air 03/09/22 13:30 131/59 L 96 Room Air 03/09/22 13:20 137/69 97 Room Air 03/09/22 13:10 138/65 95 Room Air 03/09/22 12:50 131/64 100 Oxymask 6 03/09/22 13:00 140/56 L 99 Oxymask 2 03/09/22 12:40 133/69 100 Oxymask 6 03/09/22 12:30 138/67 100 Oxymask 6 03/09/22 12:20 158/68 H 100 Oxymask 6 03/09/22 12:13 134/79 100 Oxymask 6 03/09/22 10:00 138/71 97 Room Air 03/09/22 07:59 98 Room Air 03/09/22 03:08 137/75 97 Room Air 03/09/22 03:07 137/75 97 Room Air 03/08/22 23:00 133/72 03/09/22 02:06 136/84 94 Room Air 03/08/22 20:14 99 Room Air 03/08/22 21:05 135/62 98 Room Air 03/08/22 20:28 96 Room Air Pain Intensity Abdomen: Pain Intensity: 6 Transfer of Care Handoff Completed per policy Notes Mental Status: alert / awake / arousable Patient Amnestic to Procedure: Yes Nausea / Vomiting: adequately controlled Pain: adequately controlled Airway Patency, RR, SpO2: stable & adequate BP & HR: stable & adequate Hydration State: stable & adequate Anesthetic Complications: no major complications apparent
[2022-03-09] MEDS ORDERED: PIPERACILLIN/TAZOBACTAM 3.375 GM in DEXTROSE 5% 100 ML IV SCH (16:00)
--- NOTE | 2022-03-11 14:42 | Discharge Summary ---
Date of Service March 09, 2022 Admission HPI Per Admitting Provider This is a 21-year-old male who presented to [facility] secondary to 24 hours of abdominal pain. Patient notes that the pain in his lower abdomen near his umbilicus and also the right lower quadrant. He has had associated nausea and vomiting. He denies any fevers, shakes, or chills. He notes that the pain is worse with certain movements. He does not note any other modifying factors. He has never had any abdominal surgeries in the past. In the emergency department the patient had labs and imaging which independent reviewed. CT scan of the abdomen pelvis was performed with intravenous and oral contrast. Unfortunately the patient vomited shortly after consuming some of the oral contrast. On this scan the appendix was not well visualized but there was an 11 mm structure in the right lower quadrant that was felt either reflect a dilated appendix or loop of ileum. The patient did have labs were CBC revealed white blood cell count was normal. His hemoglobin was 13.9 with a normal hematocrit. Platelet count was noted to be normal. Chemistry profile showed sodium was 135. Potassium, BUN, and creatinine were normal. Patient did have a COVID test that was negative. It is noteworthy to mention that the patient did present to [facility] in October of this year with similar symptoms. During that visit CT scan of the abdomen showed that the tip of the appendix was mildly distended and filled with hyperdense material measuring up to 8 mm. There is no definite wall thickening or surrounding inflammation and clinical suspicion was low for tip appendicitis. The patient was discharged home and has been doing well since. The treating emergency room physician did speak with the interpreting radiologist and when he compared the 2 scans there was concern the patient did have an acute appendicitis. Principal Diagnosis Acute appendicitis Discharge Exam Constitutional WD/WN, vitals as above Gastrointestinal (Abdomen) Inspection/Auscultation: + abdominal surgical incision (dry) Percussion/Palpation: abdomen soft Discharge Data Allergies Allergy/AdvReac Type Severity Reaction Status Date / Time No Known Allergies Allergy Verified 03/08/22 23:15 Consultations 03/09/22 01:30 ED Decision to Admit Stat Procedures Performed Operation Date: 03/09/22 15:00 Actual Procedures p Laparoscopic Appendectomy(Not Applicable) - Javad Keith, DO, FACS Ordered Studies 03/08/22 20:14 CT abd pelvis oral and IV con Urgent Hospital Course (1) Acute appendicitis with localized peritonitis: 21-year-old male presented to the ER with abdominal pain. White count was 12,[address] was consistent with acute appendicitis. He was admitted overnight on IV antibiotics and was taken to the operating room for laparoscopic appendectomy in the morning. He was able to advance diet during the day and tolerate oral analgesics. He was stable for discharge home later in the evening. Total Time Total Time Spent Total Time Spent (In Minutes): 15 Discharge Plan Discharge Items Patient Disposition: Home - Self-Care Reason For Visit: ABDOMINAL PAIN Discharge Diagnosis: Laparoscopic appendectomy Activity: As commented below Lifting: No more than 10 pounds Bathing Comment: OK to shower over skin glue Driving/Machine Use: Resume 3 days after discharge Non-emergency contact: Surgeon Call non-emergency contact if: you have any medication questions, your pain is not controlled, you have a fever, your temperature is above 101.5 and your wound has increased redness Follow-up/Referrals: Javad Keith, ROBI LÓPEZ [Physician] - (You have an appt on Tuesday03/22/22 at 9:15 AM, you can call to change if needed) [facility] [Primary Care Provider] - Diet: Regular Addtl Attending Provider Instructions: Pending Studies at Discharge: No Stand-Alone Forms: My [facility], Opioid Pain Management, Smoking Cessation Medications and DC Order Prescriptions: New oxycodone-acetaminophen [Percocet] 5-325 mg tablet 1 - 2 tab PO Q4H PRN (Reason: pain, initial therapy, max 6 daily) Qty: 15 0RF Discharge Orders: Discharge Order (Routine); Ordered 03/09/22 Ordered By: Harjit Ward Admission Data Admit Date/Time: 03/09/22 01:50 Attending Provider: Javad Keith Admit Provider: Javad Keith Primary Care Provider: [facility] Other Providers: Javad Keith Other Interventions: Discharge Summary Assessment (RN) Last Done: 03/09/22 17:15 Coding Level of Care Code D/C DAY MANAGEMENT <30 MINS Diagnoses Acute appendicitis with localized peritonitis K35.30
== END 2022-03-09 17:50 | disposition home or self-care (01) | DRG 343 ==
LOC: ED 20:10 → 3N 03-09 01:50